=== PATIENT | female | born 1945 | race Caucasian/White ===

== ENCOUNTER → 2016-09-30 | Outpatient (CLI) | payer MEDICARE ==
--- NOTE | 2016-10-01 10:49 | XR ---
Bilateral hips HISTORY: Bilateral hip pain, osteoarthritis 2 views of both hips are submitted on a total of 4 images, correlation to prior exam 26 September 2015 Surgical clips are present within the pelvis, bowel signature, stimulator is noted with generator ove rlying the right gluteal region, leads coursing in the right hemipelvis. There is marginal spurring p resent at the femoral heads, acetabula. There is mild joint space loss bilaterally. Alignment is main tained. Bone mineralization is reduced. Some soft tissue calcification is present possibly chondrocal cinosis bilaterally along the lateral hip joints. 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
== END | disposition home or self-care (01) ==
LOC: RADXRYALE 10:09
PROVIDERS: ATTEND Family Medicine
DX: M25.551 Pain in right hip (principal); M25.552 Pain in left hip
CPT/HCPCS: 73521